=== PATIENT | female | born 1960 | race Caucasian/White ===

== ENCOUNTER 2021-09-20 16:23 | Emergency (ER) | payer BC, OTHER ==
[2021-09-20] MEDS: HYDROmorphone 1 MG/ML Syringe IVPUSH ONE ×3 (16:48→19:34)
--- NOTE | 2021-09-20 16:59 | EDM.PDOC ---
ED HPI GENERAL MEDICAL PROBLEM - General Chief Complaint: Lower Extremity Injury/Pain Stated Complaint: HIP PAIN Time Seen by Provider: 09/20/21 16:25 Source of Information: Reports: Patient, EMS, Family History Limitations: Reports: No Limitations - History of Present Illness INITIAL COMMENTS - FREE TEXT/NARRATIVE: Karmen, 61-year-old female, presents emergency department by ambulance after today she experienced onset of emesis that has persisted throughout the day. States that this morning she had taken her medications when she experienced emesis likely losing the majority of them. She was exposed last week to grandchildren who had viral gastroenteritis as they spent time at her residence. She denies any other activity or travels as she has been home maintaining care of her wound of the left lower extremity. She denies shortness of breath or any significant cough with no fever chills chest pain nor diarrhea. She states her hip pain has been prominent as she is in need of bilateral hip replacements secondary of osteoarthritis. She is immunized against influenza as well as COVID-19 but has not received her booster. She has been doing wet-to-dry dressings with implement of Dakins solution secondary of the chronic ulceration with peripheral vascular disease. She stated her pain worsened today with the emesis starting denying any abdominal discomfort, having 2 bowel movements earlier in the day. Onset: Today Duration: Hour(s): Location: Reports: Abdomen, Pelvis Quality: Reports: Ache, Burning, Sharp Severity: Severe Improves with: Reports: None Worsens with: Reports: Movement Context: Reports: Other Associated Symptoms: Reports: Cough, Headaches, Loss of Appetite, Nausea/Vomiting Left Hip Pain Score (Numeric/FACES): 10 - Related Data Allergies Allergy/AdvReac Type Severity Reaction Status Date / Time bupropion Allergy Cannot Verified 09/20/21 17:49 Remember erythromycin base Allergy Other Verified 09/20/21 16:27 lidocaine Allergy Cannot Verified 09/20/21 17:49 Remember macadamia nut oil Allergy Other Verified 09/20/21 17:49 midazolam [From Versed] Allergy Anaphylactic Verified 09/20/21 17:49 Shock risperidone [From Risperdal] Allergy Cannot Verified 09/20/21 17:50 Remember Sulfa (Sulfonamide Allergy Other Verified 09/20/21 16:27 Antibiotics) venom-honey bee Allergy Cannot Verified 09/20/21 17:49 Remember venom-wasp protein Allergy Cannot Verified 09/20/21 17:49 Remember Damon Family Allergy Cannot Uncoded 09/20/21 17:50 Remember Home Meds: Home Meds Amitriptyline [Elavil] 15 mg PO BEDTIME 09/20/21 [History] Cyclobenzaprine [Flexeril] 10 mg PO TID PRN 09/20/21 [History] DULoxetine [Cymbalta] 60 mg PO DAILY 09/20/21 [History] Docusate Sodium [Colace] 100 mg PO DAILY PRN 09/20/21 [History] Doxycycline Hyclate 100 mg PO BID 7 Days #14 capsule 09/20/21 [Rx] Gabapentin [Neurontin] 900 mg PO TID 09/20/21 [History] amLODIPine [Norvasc] 10 mg PO DAILY 09/20/21 [History] hydrOXYzine HCL [hydrOXYzine] 10 mg PO DAILY PRN 09/20/21 [History] traZODone 50 mg PO BEDTIME 09/20/21 [History] Past Medical History HEENT History: Reports: None Cardiovascular History: Reports: Hypertension Respiratory History: Reports: Intubation, Previous Gastrointestinal History: Reports: Cholelithiasis FIGURE SKATER History: Reports: Ectopic , Musculoskeletal History: Reports: Back Pain, Chronic, Osteoarthritis Neurological History: Reports: CVA Psychiatric History: Reports: Anxiety, Depression Hematologic History: Reports: Anemia Immunologic History: Reports: None Oncologic (Cancer) History: Reports: None Dermatologic History: Reports: Other (See Below) (PVD Ulcer) - Past Surgical History Head Surgeries/Procedures: Reports: None Cardiovascular Surgical History: Reports: None Respiratory Surgical History: Reports: None GI Surgical History: Reports: Abdominal paracentesis, Appendectomy, Cholecystectomy, Colonoscopy Female Surgical History: Reports: Hysterectomy, Other (See Below) Other Female Surgeries/Procedures: Fallopian tube Social & Family History - Family History Family Medical History: No Pertinent Family History GI: Reports: GERD - Alcohol Use Alcohol Use History: No Review of Systems - Review of Systems Review Of Systems: Comprehensive ROS is negative, except as noted in HPI. ED EXAM, GENERAL - Physical Exam Exam: See Below Free Text/Narrative:: Alert, oriented, in moderate painful distress. HEENT is negative discharge or deformity with piercings to the left naris as well as midline lower lip. No involvement auditory canals tympanic membranes. PERRLA no icterus no injection. EOM intact. Neck is soft supple no lymphadenopathy, no JVD. Thorax is slightly raspy on exhalation with no wheezes no crackles cyst is improving clear with cough. Cardiac is S1-S2 I do not appreciate a murmur. No ectopic beats are present. Abdomen is rotund soft bowel sounds are present throughout mild tenderness generalized is noted to palpation predominantly in the upper quadrants as she is been retching and experiencing emesis the majority of the day. She has significant discomfort bilateral hips which she states are both scheduled for replacement due to degenerative disease but is awaiting complete healing resolution of a chronic venous stasis ulcer of the left still medial tibia. There is trace edema to the lower extremities with a significant ulceration covered with wet-to-dry dressings to the left lower ankle. 8x3 cm mild reddened distal margin, No drainage is noted and it appears to be in a improved stable state from pictures in [facility]. Course - Vital Signs Last Recorded V/S: Last Vital Signs Temp 99.5 F 09/20/21 16:25 Pulse 105 H 09/20/21 17:46 Resp 20 09/20/21 17:46 BP 135/86 09/20/21 18:56 Pulse Ox 92 L 09/20/21 17:46 - Orders/Labs/Meds Orders: Active Orders 24 hr Category Date Time Status Peripheral IV Care [RC] . DIRECTED Care 09/20/21 16:34 Active CULTURE BLOOD [BC] Stat Lab 09/20/21 16:34 Ordered CULTURE BLOOD [BC] Stat Lab 09/20/21 16:50 Received CULTURE URINE [RM] Stat Lab 09/20/21 18:24 Received LACTIC ACID [CHEM] Routine Lab 09/20/21 19:46 Ordered Sodium Chloride 0.9% [Saline Flush] Med 09/20/21 16:33 Active 10 ml FLUSH Q8HR PRN Blood Culture x2 Reflex Set [OM.PC] Stat Oth 09/20/21 16:33 Ordered Peripheral IV Insertion Adult [OM.PC] Stat Oth 09/20/21 16:33 Ordered Medication Orders Sodium Chloride (Sodium Chloride 0.9% 10 Ml Syringe) 10 ml FLUSH Q8HR PRN PRN Reason: keep vein open Last Admin: 09/20/21 18:00 Dose: 10 ml Documented by: RAHUL Labs: Laboratory Tests 09/20/21 09/20/21 09/20/21 Range/Units 16:45 16:50 16:50 WBC 13.51 H (5.00-10.00) 10^3/uL RBC 5.41 (3.80-5.50) 10^6/uL Hgb 15.6 (12.0-16.0) g/dL Hct 47.5 H (37.0-47.0) % MCV 87.8 (82.0-92.0) fL MCH 28.8 (27.0-31.0) pg MCHC 32.8 (32.0-36.0) g/dL RDW 11.8 (11.5-14.5) % Plt Count 242 (150-400) 10^3/uL MPV 8.7 (7.4-10.4) fL Add Manual Diff Yes Neutrophils % (Manual) 92 H (50-70) % Band Neutrophils % 2 L (4-12) % Lymphocytes % (Manual) 4 L (20-40) % Atypical Lymphs % 1 Monocytes % (Manual) 1 L (2-8) % Platelet Estimate Adequate Sodium 138 (136-145) mmol/L Potassium 4.3 (3.5-5.1) mmol/L Chloride 102 (98-107) mmol/L Carbon Dioxide 21.3 (21.0-32.0) mmol/L Anion Gap 19.0 H (5-15) mmol/L BUN 18 (7-18) mg/dL Creatinine 0.65 (0.51-1.17) mg/dL Est Cr Clr Drug Dosing TNP Estimated GFR (MDRD) > 60 mL/min Glucose 139 (70-140) mg/dL Lactic Acid (0.4-2.0) mmol/L Calcium 8.7 (8.7-10.3) mg/dL Total Bilirubin 0.6 (0.2-1.0) mg/dL AST 14 L (15-37) U/L ALT 22 (14-63) U/L Alkaline Phosphatase 123 H (46-116) U/L Total Protein 7.4 (6.4-8.2) g/dL Albumin 3.64 (3.40-5.00) g/dL Specimen Type Urine Color (YELLOW) Urine Appearance (CLEAR) Urine pH (5.0-9.0) Ur Specific [place] (1.005-1.030) Urine Protein (NEGATIVE) mg/dL Urine Glucose (UA) (NEGATIVE) mg/dL Urine Ketones (NEGATIVE) mg/dL Urine Occult Blood (NEGATIVE) Urine Nitrite (NEGATIVE) Urine Bilirubin (NEGATIVE) Urine Urobilinogen (0.2-1.0) E.U./dL Ur Leukocyte Esterase (NEGATIVE) Urine RBC (0-5) /HPF Urine WBC (0-5) /HPF Ur Epithelial Cells /LPF Urine Bacteria (NONE TO FEW) /HPF Influenza Type A RNA Negative (NEGATIVE) RSV RNA (INAAT) Negative (NEGATIVE) Influenza Type B RNA Negative (NEGATIVE) SARS-CoV-2 RNA (JIN) Negative (NEGATIVE) 09/20/21 09/20/21 Range/Units 16:50 18:24 WBC (5.00-10.00) 10^3/uL RBC (3.80-5.50) 10^6/uL Hgb (12.0-16.0) g/dL Hct (37.0-47.0) % MCV (82.0-92.0) fL MCH (27.0-31.0) pg MCHC (32.0-36.0) g/dL RDW (11.5-14.5) % Plt Count (150-400) 10^3/uL MPV (7.4-10.4) fL Add Manual Diff Neutrophils % (Manual) (50-70) % Band Neutrophils % (4-12) % Lymphocytes % (Manual) (20-40) % Atypical Lymphs % Monocytes % (Manual) (2-8) % Platelet Estimate Sodium (136-145) mmol/L Potassium (3.5-5.1) mmol/L Chloride (98-107) mmol/L Carbon Dioxide (21.0-32.0) mmol/L Anion Gap (5-15) mmol/L BUN (7-18) mg/dL Creatinine (0.51-1.17) mg/dL Est Cr Clr Drug Dosing Estimated GFR (MDRD) mL/min Glucose (70-140) mg/dL Lactic Acid 2.8 H (0.4-2.0) mmol/L Calcium (8.7-10.3) mg/dL Total Bilirubin (0.2-1.0) mg/dL AST (15-37) U/L ALT (14-63) U/L Alkaline Phosphatase (46-116) U/L Total Protein (6.4-8.2) g/dL Albumin (3.40-5.00) g/dL Specimen Type Urincc Urine Color Yellow (YELLOW) Urine Appearance Clear (CLEAR) Urine pH 6.5 (5.0-9.0) Ur Specific [place] 1.020 (1.005-1.030) Urine Protein Negative (NEGATIVE) mg/dL Urine Glucose (UA) Negative (NEGATIVE) mg/dL Urine Ketones Trace H (NEGATIVE) mg/dL Urine Occult Blood Negative (NEGATIVE) Urine Nitrite Negative (NEGATIVE) Urine Bilirubin Negative (NEGATIVE) Urine Urobilinogen 0.2 (0.2-1.0) E.U./dL Ur Leukocyte Esterase Trace H (NEGATIVE) Urine RBC 0-5 (0-5) /HPF Urine WBC 0-5 (0-5) /HPF Ur Epithelial Cells Few /LPF Urine Bacteria Few (NONE TO FEW) /HPF Influenza Type A RNA (NEGATIVE) RSV RNA (INAAT) (NEGATIVE) Influenza Type B RNA (NEGATIVE) SARS-CoV-2 RNA (JIN) (NEGATIVE) Meds: Medications Generic Name Dose Route Start Last Admin Trade Name Freq PRN Reason Stop Dose Admin Sodium Chloride 10 ml 09/20/21 16:33 09/20/21 18:00 Sodium Chloride 0.9% 10 Ml Syringe FLUSH 10 ml Q8HR PRN Administration keep vein open Discontinued Medications Generic Name Dose Route Start Last Admin Trade Name Freq PRN Reason Stop Dose Admin Hydrocodone Bitart/Acetaminophen 3 tab 09/20/21 20:15 09/20/21 20:21 Acetaminophen/Hydrocodone 325-5 Mg Tab PO 09/20/21 20:16 Not Given ONETIME ONE Doxycycline Hyclate 100 mg 09/20/21 19:25 09/20/21 19:31 Doxycycline 50 Mg Cap PO 09/20/21 19:26 100 mg ONETIME ONE Administration Hydromorphone HCl 1 mg 09/20/21 16:48 09/20/21 16:48 Hydromorphone 1 Mg/Ml Syringe IVPUSH 09/20/21 16:49 1 mg ONETIME ONE Administration Hydromorphone HCl Confirm 09/20/21 16:50 09/20/21 17:28 Hydromorphone 1 Mg/Ml Syringe Administered 09/20/21 16:51 Not Given Dose 1 mg .ROUTE .STK-MED ONE Hydromorphone HCl 1 mg 09/20/21 17:45 09/20/21 18:04 Hydromorphone 1 Mg/Ml Syringe IVPUSH 09/20/21 17:46 1 mg ONETIME ONE Administration Hydromorphone HCl 1 mg 09/20/21 19:24 09/20/21 19:34 Hydromorphone 1 Mg/Ml Syringe IVPUSH 09/20/21 19:25 1 mg ONETIME ONE Administration Sodium Chloride 1,000 mls @ 999 mls/hr 09/20/21 18:48 09/20/21 18:55 Normal Saline IV 09/20/21 19:48 999 mls/hr .BOLUS ONE Administration Sodium Chloride Confirm 09/20/21 18:51 09/20/21 18:55 Normal Saline Administered 09/20/21 18:52 Not Given Dose 1,000 mls @ as directed .ROUTE .STK-MED ONE Ondansetron HCl 8 mg 09/20/21 17:53 09/20/21 17:59 Ondansetron 4 Mg/2 Ml Sdv IVPUSH 09/20/21 17:54 8 mg ONETIME ONE Administration - Radiology Interpretation Free Text/Narrative:: Chest x-ray negative for any evidence of infiltrate. Bowel shows no free air with moderate distention likely secondary of her emesis. Pelvis shows significant degenerative changes in both hips with no bowel obstruction. - Re-Assessments/Exams Free Text/Narrative Re-Assessment/Exam: 09/20/21 19:07 She is remained afebrile able to take ice chips with no difficulty approximately 250 mL consumed. The administration of hydromorphone has controlled her pain quite adequately as we are awaiting potential for urine sample and mobility. As she is not maintaining tachycardia with good blood pressure good saturation I would attribute the elevation in her lactic acid secondary of stress and liver involvement. The abdominal straining stress that she was 1st experiencing is seemingly resolved at this time. We have discussed criteria and issues she is willing to attempt to go home when her significant other returns with clothing as well as her walker. Consideration for antibiotic for the chronic wound is being discussed secondary of the chronicity and the slow healing process. Free Text/Narrative Re-Assessment/Exam: 09/20/21 20:32 Pain is fairly well controlled and she is able to dress herself and with the use of her walker ambulate. Will be discharged home with recommended follow-up Departure - Departure Time of Disposition: 20:22 Disposition: Home, Self-Care 01 Condition: Fair Clinical Impression: Viral gastroenteritis, Peripheral vascular disease of lower extremity with ulceration, Chronic pain Nausea & vomiting Qualifiers: Vomiting type: bilious vomiting Qualified Code(s): R11.14 - Bilious vomiting Degenerative joint disease of both hips Qualifiers: Osteoarthritis type: primary Qualified Code(s): M16.0 - Bilateral primary osteoarthritis of hip - Discharge Information *PRESCRIPTION DRUG MONITORING PROGRAM REVIEWED*: Not Applicable *COPY OF PRESCRIPTION DRUG MONITORING REPORT IN PATIENT HUYEN: Not Applicable Prescriptions: Doxycycline Hyclate 100 mg PO BID 7 Days #14 capsule Instructions: Viral Gastroenteritis, Adult, [id number], Nausea and Vomiting, Adult, [id number], Pain Medicine Instructions, [id number] Referrals: Adriana Knight MD [Primary Care Provider] - Forms: ED Department Discharge Additional Instructions: Your lab work is in stable standing for any significant concern with your nausea and vomiting. Your x-rays were all within normal limits other than some dilation of the bowel likely from your emesis. The low-grade white count could be associated with stress as well as the chronic venous stasis ulcer of your leg. We will implement doxycycline 100 mg twice daily for the next 7 days. We will send home 3 hydrocodone 01/15/2025 for use throughout the night as needed and tomorrow with a discussion at the clinic for adjustment in your pain medic ine. You should get an appointment sometime next week for reassessment and provider evaluation of your wound as [place] had been discussed with you. Consideration for changing physical therapy to here locally in [place] versus what they had planned for you in [place] for the convenience of travel may be beneficial as well also. Limit your activity but try remain somewhat in motion to reduce the muscle stiffness and catching sensation in your hips that seemingly worsens after being immobilized. Sepsis Event Note (ED) - Focused Exam Vital Signs: Vital Signs Temp Pulse Resp BP Pulse Ox 09/20/21 18:56 135/86 09/20/21 17:46 105 H 20 139/85 92 L 09/20/21 16:25 99.5 F 110 H 16 131/85 93 L - Problem List & Annotations (1) Nausea & vomiting SNOMED Code(s): 40127319 Code(s): R11.2 - NAUSEA WITH VOMITING, UNSPECIFIED Status: Acute Priority: High Current Visit: Yes Qualifiers: Vomiting type: bilious vomiting Qualified Code(s): R11.14 - Bilious vomiting (2) Viral gastroenteritis SNOMED Code(s): 025933275 Code(s): A08.4 - VIRAL INTESTINAL INFECTION, UNSPECIFIED Status: Acute Priority: High Current Visit: Yes (3) Degenerative joint disease of both hips SNOMED Code(s): 222867762183655 Code(s): M16.0 - BILATERAL PRIMARY OSTEOARTHRITIS OF HIP Status: Chronic Priority: Medium Current Visit: Yes Qualifiers: Osteoarthritis type: primary Qualified Code(s): M16.0 - Bilateral primary osteoarthritis of hip (4) Peripheral vascular disease SNOMED Code(s): 155370089 Code(s): I73.9 - PERIPHERAL VASCULAR DISEASE, UNSPECIFIED Status: Chronic Priority: High Current Visit: Yes (5) Peripheral vascular disease of lower extremity with ulceration SNOMED Code(s): 771453632 Code(s): I73.9 - PERIPHERAL VASCULAR DISEASE, UNSPECIFIED; L97.909 - NON-PRS CHRONIC ULC UNSP PRT OF UNSP LOW LEG W UNSP SEVERITY Status: Chronic Current Visit: Yes (6) Chronic pain SNOMED Code(s): 14558322 Code(s): G89.29 - OTHER CHRONIC PAIN Status: Acute Current Visit: Yes - Problem List Review Problem List Initiated/Reviewed/Updated: Yes - My Orders Last 24 Hours: My Active Orders 09/20/21 16:33 Sodium Chloride 0.9% [Saline Flush] 10 ml FLUSH Q8HR PRN Blood Culture x2 Reflex Set [OM.PC] Stat Peripheral IV Insertion Adult [OM.PC] Stat 09/20/21 16:34 Peripheral IV Care [RC] . DIRECTED CULTURE BLOOD [BC] Stat 09/20/21 16:50 CULTURE BLOOD [BC] Stat 09/20/21 18:24 CULTURE URINE [RM] Stat 09/20/21 19:46 LACTIC ACID [CHEM] Routine - Assessment/Plan Last 24 Hours: My Active Orders 09/20/21 16:33 Sodium Chloride 0.9% [Saline Flush] 10 ml FLUSH Q8HR PRN Blood Culture x2 Reflex Set [OM.PC] Stat Peripheral IV Insertion Adult [OM.PC] Stat 09/20/21 16:34 Peripheral IV Care [RC] . DIRECTED CULTURE BLOOD [BC] Stat 09/20/21 16:50 CULTURE BLOOD [BC] Stat 09/20/21 18:24 CULTURE URINE [RM] Stat 09/20/21 19:46 LACTIC ACID [CHEM] Routine Plan: Your lab work is in stable standing for any significant concern with your nausea and vomiting. Your x-rays were all within normal limits other than some dilation of the bowel likely from your emesis. The low-grade white count could be associated with stress as well as the chronic venous stasis ulcer of your leg. We will implement doxycycline 100 mg twice daily for the next 7 days. We will send home 3 hydrocodone 01/15/2025 for use throughout the night as needed and tomorrow with a discussion at the clinic for adjustment in your pain medicine. You should get an appointment sometime next week for reassessment and provider evaluation of your wound as [place] had been discussed with you. Consideration for changing physical therapy to here locally in [place] versus what they had planned for you in [place] for the convenience of travel may be beneficial as well also. Limit your activity but try remain somewhat in motion to reduce the muscle stiffness and catching sensation in your hips that seemingly worsens after being immobilized.
[2021-09-20] MEDS: HYDROmorphone 1 MG/ML Syringe ONE (17:28)
[2021-09-20 17:34] LABS: CHLORIDE,CL 102 mmol/L (98-107); SODIUM,NA 138 mmol/L (136-145)
--- NOTE | 2021-09-20 17:51 | CR ---
[id number] RAD/RAD Abd Flat and Upright 2V Exam: RAD Abd Flat and Upright 2V Clinical Data: PAIN AND NAUSEA COMPARISON: NO PREVIOUS SIMILAR EXAM IS AVAILABLE FINDINGS: There is moderate gastric distention There is no bowel obstruction There is no free air. There are degenerative changes of both hips IMPRESSION: MODERATE GASTRIC DISTENTION NO FREE AIR Ronald Valadez MD 09/20/21 [id number] Thank you for allowing us to participate in the care of your patient.
--- NOTE | 2021-09-20 17:53 | CR ---
[id number] RAD/RAD Chest PA or AP 1V EXAM: SINGLE VIEW CHEST. INDICATION: PAIN AND NAUSEA VOMITING COMPARISON: NO PREVIOUS SIMILAR EXAM IS AVAILABLE FINDINGS: The lungs are clear The cardiomediastinal contour is enlarged IMPRESSION: NO ACUTE PROCESS Ronald Valadez MD 09/20/21 9929 Thank you for allowing us to participate in the care of your patient.
--- NOTE | 2021-09-20 17:53 | CR ---
[id number] RAD/RAD Pelvis 1-2V Exam: RAD Pelvis 1-2V Clinical Data: NAUSEA AND VOMITING COMPARISON: NO PREVIOUS SIMILAR EXAM IS AVAILABLE FINDINGS: There is no bowel obstruction There are degenerative changes of both hips There are no pathologic calcifications IMPRESSION: NO ACUTE PLAIN FILM ABNORMALITY Ronald Valadez MD 09/20/21 [id number] Thank you for allowing us to participate in the care of your patient.
[2021-09-20] MEDS: Ondansetron 4 MG/2 ML SDV IVPUSH ONE (17:59)
[2021-09-20] MEDS: Sodium Chloride 0.9% 10 ML Syringe FLUSH PRN (18:00)
[2021-09-20 18:01] LABS: CORONAVIRUS COVID-19 NAA NEGATIVE (NEGATIVE); RESPIRATORY SYNCYTIAL VIR NAA NEGATIVE (NEGATIVE)
[2021-09-20] MEDS: Sodium Chloride 0.9% 1,000 ML IV ONE (18:55)
[2021-09-20] MEDS: Sodium Chloride 0.9% 1,000 ML ONE (18:55)
[2021-09-20] MEDS: Acetaminophen/HYDROcodone 325-5 MG Tab PO ONE (20:21)
== END 2021-09-20 20:45 | disposition home or self-care (01) ==
LOC: KA.ED 16:23
DX: M16.0 Bilateral primary osteoarthritis of hip (principal); A08.4 Viral intestinal infection, unspecified; I73.9 Peripheral vascular disease, unspecified; I10 Essential (primary) hypertension; Z86.73 Personal history of transient ischemic attack (TIA), and cerebral infarction without residual deficits; Z88.4 Allergy status to anesthetic agent; Z88.2 Allergy status to sulfonamides; Z88.8 Allergy status to other drugs, medicaments and biological substances; Z88.1 Allergy status to other antibiotic agents; Z91.048 Other nonmedicinal substance allergy status; Z91.030 Bee allergy status; Z20.822 Contact with and (suspected) exposure to COVID-19
CPT/HCPCS: 0241U; 36415; 71045; 72170; 74021; 80053; 81001; 83605; 85025; 87040; 87086; 96374; 96375; 96376; 99284; 99284-25; A9270-GY; J1170; J2405; J7030

== ENCOUNTER 2022-01-31 22:25 | Emergency (ER) | payer OTHER ==
[2022-01-31] MEDS ORDERED: Acetaminophen 500 MG Tab PO ONE ×2 (22:46→22:56)
[2022-01-31] MEDS ORDERED: Acetaminophen/HYDROcodone 325-5 MG Tab PO ONE (22:56)
== END 2022-01-31 23:35 | disposition home or self-care (01) ==
LOC: KA.ED 22:25
DX: S60.212A Contusion of left wrist, initial encounter (principal); M16.0 Bilateral primary osteoarthritis of hip; M25.552 Pain in left hip; I10 Essential (primary) hypertension; Z86.73 Personal history of transient ischemic attack (TIA), and cerebral infarction without residual deficits; Z88.1 Allergy status to other antibiotic agents; Z91.030 Bee allergy status; Z88.4 Allergy status to anesthetic agent; W01.0XXA Fall on same level from slipping, tripping and stumbling without subsequent striking against object, initial encounter
CPT/HCPCS: 73100-LT; 99283; A9270-GY

== ENCOUNTER 2023-05-19 18:15 | Emergency (ER) | payer OTHER ==
[2023-05-19] MEDS ORDERED: Famotidine 20 MG/2 ML SDV IVPUSH ONE (18:22)
[2023-05-19] MEDS ORDERED: methylPREDNISolone Sodium Succinate 125 MG/2 ML SDV IVPUSH ONE (18:22)
[2023-05-19] MEDS ORDERED: diphenhydrAMINE 50 MG/ML SDV IVPUSH ONE (18:22)
[2023-05-19] MEDS ORDERED: Sodium Chloride 0.9% 10 ML Syringe FLUSH PRN (18:23)
[2023-05-19] MEDS ORDERED: Albuterol 0.083% 2.5 MG/3 ML Neb Soln NEB ONE (18:23)
== END 2023-05-19 19:33 | disposition home or self-care (01) ==
LOC: KA.ED 18:15
DX: T63.461A Toxic effect of venom of wasps, accidental (unintentional), initial encounter (principal); I10 Essential (primary) hypertension; Z86.73 Personal history of transient ischemic attack (TIA), and cerebral infarction without residual deficits; Z88.1 Allergy status to other antibiotic agents; Z88.8 Allergy status to other drugs, medicaments and biological substances; Z88.2 Allergy status to sulfonamides; Z91.030 Bee allergy status; Z91.018 Allergy to other foods; Z88.5 Allergy status to narcotic agent; Z79.899 Other long term (current) drug therapy
CPT/HCPCS: 96374; 96375; 99283; 99285-25; J1200; J2930; J3490